=== PATIENT | female | born 1965 | race Caucasian/White ===

== ENCOUNTER 2021-05-04 04:27 | Emergency (ER) | payer OTHER ==
[~2021-05-04] VITALS: Ht 157.5 cm; Wt 90.7 kg
--- NOTE | 2021-05-04 04:40 | NUR ---
PATIENT SHEKHAR [id number] FROM HOME FOR C/O BILATERAL LOWER BACK PAIN. PATIENT STARTED SPOTTING YESTRDAY AFTER MORE THAN 1 YEAR OF MENOPAUSE. PATIENT IS A/O X 4, RR EVEN AND UNLABORED, NO SIGNS OF SOB NOTED. PATIENT CONNECTED TO [employer] AND [employer].
[2021-05-04] MEDS ORDERED: MORPHINE SULFATE INJ 4 MG/ML DISP.SYRIN ONE ×2 (04:50→07:10)
[2021-05-04] MEDS ORDERED: MORPHINE SULFATE INJ 2 MG/ML DISP.SYRIN IV ONE ×2 (05:00→07:30)
[2021-05-04] MEDS ORDERED: IOHEXOL-300 100 ML VIAL IV ONE (05:05)
--- NOTE | 2021-05-04 05:05 | NUR ---
URINE COLLECTED AND SENT TO LAB
[2021-05-04 05:11] LABS: BASOPHILS # (AUTO) 0.1 K/uL (0.0-0.2); BASOPHILS % (AUTO) 1.1 % (0.0-2.0); EOSINOPHILS % (AUTO) 1.9 % (0.0-6.0); HEMATOCRIT 43 % (33-45); HEMOGLOBIN 15.2 g/dL (11.5-14.8); LYMPHOCYTES # (AUTO) 2.9 K/uL (0.8-4.8); MEAN CORPUSCULAR HGB CONC 35 g/dl (31.0-36.0); MEAN CORPUSCULAR VOLUME 89 fL (82-100); MONOCYTES # (AUTO) 0.7 K/uL (0.1-1.30); MONOCYTES % (AUTO) 9.3 % (2.0-12.0); NEUTROPHILS # (AUTO) 3.6 K/uL (1.8-8.9); NEUTROPHILS % (AUTO) 48.7 % (43.0-81.0); PLATELET COUNT (AUTO) 260 K/uL (150-450); RED BLOOD CELL COUNT(AUTO) 4.89 MIL/uL (4.0-5.2); WHITE BLOOD COUNT (AUTO) 7.4 K/uL (4.3-11.0)
[2021-05-04 05:20] LABS: CALCIUM, SERUM 8.6 mg/dL (8.5-10.1); CREATININE 0.9 mg/dL (0.6-1.3); POTASSIUM 3.7 mmol/L (3.5-5.1)
[2021-05-04] MEDS ORDERED: KETO10TA2 PO (05:33)
[2021-05-04 05:36] LABS: BILIRUBIN,URINE SMALL (NEGATIVE); COLOR,URINE RED (YELLOW); LEUKOCYTE ESTERASE ,URINE TRACE (NEGATIVE); NITRITE, URINE POSITIVE (NEGATIVE); PH,URINE 5.5 (5.0-8.0); PROTEIN,URINE 100 mg/dl (NEGATIVE); UGLUCOSE NEGATIVE (NEGATIVE)
--- NOTE | 2021-05-04 05:42 | NUR ---
US AT BEDSIDE
[2021-05-04 05:52] LABS: RBC,URINE 81-100 /HPF (0-2)
[2021-05-04 05:53] LABS: BACTERIA,URINE Moderate /HPF (None Seen); SQUAMOUS EPITHELIAL CELL,UR Few /HPF (None Seen); YEAST,URINE Moderate /HPF (None Seen)
[2021-05-04] MEDS ORDERED: NITR100C PO (06:04)
--- NOTE | 2021-05-04 06:58 | NUR ---
PATIENT TAKEN TO CT
--- NOTE | 2021-05-04 07:02 | NUR ---
BACK FROM CT
--- NOTE | 2021-05-04 07:57 | NUR ---
IV removed. Catheter intact and site benign. Pressure and 4x4 applied to site. No bleeding noted. Patient discharged to home in stable condition. Written and verbal after care instructions given. Patient verbalizes understanding of instruction.
[2021-05-04 07:58] VITALS: BP 128/72
== END 2021-05-04 07:58 | disposition home or self-care (01) ==
LOC: ER 04:29
DX: N93.8 Other specified abnormal uterine and vaginal bleeding (principal); M54.5 Low back pain; Z88.6 Allergy status to analgesic agent
CPT/HCPCS: 36415; 74177; 76856; 80048; 81001; 85025; 87086; 96374; 96376; 99285; J2270 ×2; Q9967

== ENCOUNTER 2024-04-07 12:37 | Emergency (ER) | payer MEDICAID, OTHER ==
[~2024-04-07] VITALS: Ht 157.5 cm; Wt 88.5 kg
[~2024-04-07 12:37] MED LIST: KETO10TA2 PO; NITR100C PO
[2024-04-07] MEDS: ONDANSETRON HCL/PF 4 MG/2 ML VIAL IVP ONE (13:30)
[2024-04-07] MEDS: IV NS 0.9% 1,000 ML BAG IV ONE (13:30)
[2024-04-07 13:35] LABS: CALCIUM, SERUM 8.4 mg/dL (8.5-10.1); CARBON DIOXIDE 25 mmol/L (21-32); CHLORIDE 105 mmol/L (98-107); CREATININE 0.8 mg/dL (0.6-1.3); GLUCOSE 122 mg/dL (74-106); SODIUM SERUM 141 mmol/L (136-145); UREA NITROGEN, BLOOD 18 mg/dL (7-18)
[2024-04-07] MEDS ORDERED: MORPHINE SULFATE INJ 2 MG/ML DISP.SYRIN ONE (13:37)
[2024-04-07] MEDS ORDERED: ONDANSETRON HCL/PF 4 MG/2 ML VIAL ONE (13:37)
[2024-04-07 13:39] LABS: BASOPHILS # (AUTO) 0.1 K/uL (0.0-0.2); BASOPHILS % (AUTO) 0.9 % (0.0-2.0); EOSINOPHILS # (AUTO) 0.1 K/uL (0.0-0.7); EOSINOPHILS % (AUTO) 2.2 % (0.0-6.0); HEMATOCRIT 45 % (33-45); HEMOGLOBIN 15.6 g/dL (11.5-14.8); LYMPHOCYTES % (AUTO) 46.3 % (20.0-44.0); MEAN CORPUSCULAR HEMOGLOBIN 30 PG (26.0-33.0); MEAN CORPUSCULAR HGB CONC 35 g/dl (31.0-36.0); MEAN CORPUSCULAR VOLUME 85 fL (82-100); MONOCYTES # (AUTO) 0.4 K/uL (0.1-1.30); MONOCYTES % (AUTO) 6.5 % (2.0-12.0); NEUTROPHILS # (AUTO) 2.9 K/uL (1.8-8.9); NEUTROPHILS % (AUTO) 44.1 % (43.0-81.0); PLATELET COUNT (AUTO) 234 K/uL (150-450); RED BLOOD CELL COUNT(AUTO) 5.27 MIL/uL (4.0-5.2); RED CELL DISTRIBUTION WIDTH 13.2 % (11.5-15.0); WHITE BLOOD COUNT (AUTO) 6.5 K/uL (4.3-11.0)
[2024-04-07 13:43] LABS: INR 0.97 (0.91-1.10); PARTIAL THROMBOPLASTIN TIME 28.5 SEC (24.3-34.3); PROTHROMBIN TIME 10.3 SECS (9.2-11.1)
[2024-04-07] MEDS ORDERED: KETOROLAC TROMETHAMINE 15 MG/ML VIAL ONE (13:43)
[2024-04-07] MEDS: MORPHINE SULFATE INJ 2 MG/ML DISP.SYRIN IV ONE (13:46)
[2024-04-07] MEDS: KETOROLAC TROMETHAMINE 15 MG/ML VIAL IV ONE (13:49)
[2024-04-07 14:26] LABS: LACTIC ACID 2.1 mmol/L (0.4-2.0)
[2024-04-07 14:31] LABS: APPEARANCE,URINE CLEAR (CLEAR); BILIRUBIN,URINE NEGATIVE (NEGATIVE); BLOOD, URINE NEGATIVE Ery/uL (NEGATIVE); COLOR,URINE YELLOW (YELLOW); KETONES,URINE NEGATIVE (NEGATIVE); LEUKOCYTE ESTERASE ,URINE NEGATIVE (NEGATIVE); NITRITE, URINE NEGATIVE (NEGATIVE); PROTEIN,URINE NEGATIVE (NEGATIVE); UGLUCOSE NEGATIVE (NEGATIVE); UROBILINOGEN,URINE 0.2 EU/dL (0.2)
[2024-04-07 14:32] LABS: ALANINE AMINOTRANSFERASE 43 U/L (12-78); ALBUMIN 3.2 g/dL (3.4-5.0); ALKALINE PHOSPHATASE 95 U/L (46-116); ASPARTATE AMINOTRANSFERASE 18 U/L (15-37); BILIRUBIN,DIRECT 0.1 mg/dL (0.0-0.2); BILIRUBIN,TOTAL 0.3 mg/dL (0.2-1.0); LIPASE 68 U/L (16-77); TOTAL PROTEIN, SERUM 7.3 g/dL (6.4-8.2)
[2024-04-07 16:03] VITALS: TEMP 98.3
[2024-04-07] MEDS ORDERED: IOHEXOL-350 100 ML VIAL IV ONE (19:26)
[2024-04-07] MEDS ORDERED: IV NS 0.9% 250 ML IV ONE (19:26)
[2024-04-07] MEDS ORDERED: CT SWABBABLE VALVE TRANS SET 1 EA INFUS.SET MC ONE (19:26)
[2024-04-07 21:20] VITALS: BP 128/65; O2SAT 100
== END 2024-04-07 21:20 | disposition home or self-care (01) ==
LOC: ER 12:45
DX: R10.33 Periumbilical pain (principal); R11.0 Nausea; R19.7 Diarrhea, unspecified; I10 Essential (primary) hypertension; E78.5 Hyperlipidemia, unspecified; Z90.89 Acquired absence of other organs; Z90.49 Acquired absence of other specified parts of digestive tract; Z88.8 Allergy status to other drugs, medicaments and biological substances
CPT/HCPCS: 99285; 74177; 96374; 96361; 96375; 85025; 80048; 87086; 83605 ×2; 83690; 80076; 81003; 36415; 85730; J2405; J7030; J7050; Q9967; J1885; J2270